=== PATIENT | male | born 1970 | race Caucasian/White ===

== ENCOUNTER → 2017-11-03 | Outpatient (CLI) | payer OTHER ==
--- NOTE | 2017-11-04 17:23 | MR ---
EXAMINATION TYPE: MR cervical spine wo/w con DATE OF EXAM: 11/03/2017 COMPARISON: NONE HISTORY: 47-year-old male, neck pain, discitis, Cervicalgia/Left arm pain Technique: Multiplanar, multisequence images of the cervical spine were obtained before and after adm inistration of 10 mL intravenous Gadavist gadolinium contrast. FINDINGS: No craniocervical junction abnormality, predental space widening, or prevertebral soft tissue swellin g. Moderate to advanced disc/endplate degenerative change particularly from C5 through C7 levels with di sc desiccation, disc space narrowing, endplate irregularity, associated Modic fatty type II endplate change, and disc osteophyte complex formation. Multilevel facet and uncovertebral joint degenerative changes present. Straightening of the normal cervical lordosis but with preserved alignment. There is a component of mild congenital spinal canal narrowing with AP canal dimension of 9 mm. At C2-C3, there is mild facet degenerative change without significant canal or foraminal stenosis. At C3-C4, broad-based disc osteophyte complex eccentric toward the right with uncovertebral joint deg enerative change as well as facet arthropathy. Changes result in mild right neuroforaminal stenosis w ith mild overall spinal canal stenosis. There is some abutment of the ventral cord without cord tucker ening. At C4-C5, there is a left paracentral disc protrusion or spur disc complex which contributes to a ove rall mild spinal canal stenosis with focal compression and indentation of the ventral cord. Mild face t and uncovertebral joint arthropathy without significant neural foraminal stenosis. At C5-C6, broad-based disc osteophyte complex with uncovertebral joint and facet degenerative change. No significant neural foraminal stenosis. There is overall copw-cw-[id number] spinal canal stenosis wi th AP canal dimension of 8 mm. The degree of degenerative disc disease is most severe at this level w ith extensive endplate irregularity and some vacuum phenomenon. There is volume loss of the cord at t his level with some right greater than left paramedian increased T2 signal in a snake eyes appearance . Uncovertebral joint and facet degenerative change without significant neural foraminal stenosis. At C6/C7, broad-based disc osteophyte complex eccentric toward the right with uncovertebral joint and facet degenerative change. Changes contribute to a moderate right neuroforaminal stenosis with moder ate spinal canal stenosis with AP canal dimension of 7 mm. There is abutment of the ventral cord towa rds the right but no significant cord flattening. At C7-T1, facet degenerative change without significant canal or foraminal stenosis. No abnormal enhancement within the spinal canal. No prevertebral or paravertebral soft tissue abnormality seen. IMPRESSION: 1. Component of mild congenital spinal canal stenosis with superimposed moderate to advanced disc/end plate degenerative changes specially from C5 through C7 levels. 2. The most advanced degenerative disc disease is at C5-C6 where there is endplate irregularity and d isc vacuum. There are 2 foci of abnormal cord signal at this level, right greater than left, suspecte d chronic compressive myelomalacia given volume loss of the cord and snake eyes appearance to the cor d signal. Clinical correlation recommended. Now, there is residual mild to moderate spinal canal sten osis here within an AP canal dimension of 8 mm. 3. Mild overall spinal canal stenosis at C3-C4 and C4-C5 and moderate at C6-7. No marilynn cord compress ion at this time. 4. Additional scattered facet and uncovertebral joint degenerative change with a moderate right neuro foraminal stenosis at C6-C7.
== END | disposition home or self-care (01) ==
LOC: RADMRIMAIN 06:35
PROVIDERS: ATTEND Chiropractor
DX: M99.71 Connective tissue and disc stenosis of intervertebral foramina of cervical region (principal); M48.02 Spinal stenosis, cervical region; M50.322 Other cervical disc degeneration at C5-C6 level; M47.812 Spondylosis without myelopathy or radiculopathy, cervical region
CPT/HCPCS: 72156; A9581

== ENCOUNTER → 2018-05-01 | Outpatient (CLI) | payer OTHER ==
--- NOTE | 2018-05-01 22:31 | MR ---
EXAMINATION TYPE: MR shoulder LT wo con DATE OF EXAM: 05/01/2018 COMPARISON: None HISTORY: Left shoulder pain TECHNIQUE: Multiplanar, multisequence imaging of the left shoulder is performed without contrast. FINDINGS: Rotator Cuff: Very minimal fluid is under the tip of the acromion in the subdeltoid bursa. Fluid brantley sversing the rotator cuff is not identified. A small perforation could be considered. There is moder ate fluid surrounding the subscapularis tendon. Fluid transversing the subscapularis tendon is not id entified. Consider moderate tendinosis of the subscapularis tendon. Acromioclavicular Joint: No significant hypertrophy is evident. There is slight downward sloping of t he acromion. Glenohumeral Joint: There is elevation of the humeral head in relation to the glenoid. The acromiohum eral space however is preserved. Labrum: The labrum appears grossly intact given limitation of non-arthrogram study. Biceps Tendon: There is significant fluid surrounding the long head of the biceps tendon. Bone marrow signal: No focal abnormal marrow signal is appreciated. Other: Moderate to large joint effusion is present. IMPRESSION: 1. Moderately large joint effusion present. 2. Moderate tendinosis of the subscapularis tendon 3. Moderate tendinosis of the long head of the biceps tendon. 4. Mild tendinosis of the supraspinatus tendon could be considered. Perforation may be less likely bu t is not excluded.
== END | disposition home or self-care (01) ==
LOC: RADMRIMAIN 07:43
PROVIDERS: ATTEND Orthopaedic Surgery
DX: M25.412 Effusion, left shoulder (principal); M67.814 Other specified disorders of tendon, left shoulder

== ENCOUNTER → 2018-07-13 | Outpatient (CLI) | payer OTHER ==
--- NOTE | 2018-07-13 16:34 | CONS ---
CONSULTATION REASON FOR CONSULTATION: Sleep apnea. This is a 48-year-old male patient who has been having sleep interruption, as the patient is waking up gasping for air. He is snoring very loudly and he is waking up on multiple occasions choking and gasping. He feels tired all the time. He is an aircraft structural fitter. He does a lot of traveling. He works in [employer] and he drives back and forth to [place]. Upon driving back from work, he is very tired and sleepy, and at times he feels that he can easily fall asleep. His [place] score is 17. He has chronic nasal congestion, for which he has tried Sudafed with good success. This is non-allergic in nature, knowing that he has not responded to Flonase or Claritin. His snoring is very loud. No nocturia. No grinding of the teeth. He has chronic arthritic pain in his neck and his shoulders, and he has been unable to get himself comfortable in bed. He has gotten a special pillow that he sleeps on, and he tries to sleep on his side. He goes to bed around 11 p.m., wakes up at 6 a.m. in the morning. He wakes up sometimes uncomfortable due to his neck and shoulder pain. He has undergone previous cervical disc surgery with fusion at the level of C5 and C6. No restlessness in the lower extremities. He has been feeling tired and sleepy throughout the day. He did gain weight over the years; he used to weigh around 205 pounds. He was as high as 258, and currently he is down to 244. He does not drink alcohol. He quit drinking alcohol quite some time ago. No history of smoking. No history of substance abuse. No dreams. No seizure activity. No sleep paralysis. No hallucinations or cataplexy. PAST MEDICAL HISTORY: 1. Degenerative arthritis. 2. Cervical disc disease with previous effusion. 3. Chronic rhinitis. 4. Heartburn. PAST SURGICAL HISTORY: Includes: 1. Cervical spine fusion at C5, C6. 2. Proximal right wrist carpectomy. 3. Bilateral knee arthroscopy. ALLERGIES: NOT KNOWN. OUTPATIENT MEDICATIONS: Include: 1. Sudafed over the counter. 2. Omeprazole. SOCIAL HISTORY: The patient is a nonsmoker. No history of alcoholism. No history of any IV drugs. FAMILY HISTORY: Negative for obstructive sleep apnea. No significant family history related to sleep breathing disorder. REVIEW OF SYSTEMS: Twelve-point review of systems was done. Positive findings were all mentioned above in the history of present illness. This patient has no issues with insomnia. His sleep is fragmented related to arthritis and possibly sleep apnea. No choking or gasping for air. No grinding of the teeth. He wakes up with a dry mouth. He has excessive nasal congestion and occasional heartburn. No shortness of breath, chest pain or headache during the day. No anxiety. No depression. No claustrophobia. No sleep paralysis. No hallucinations. No cataplexy. No history of any motor vehicle accident because of feeling drowsy or sleepy. No issues with memory or concentration. He has had issues with weight gain and he is trying to lose weight. Because of his chronic arthritic pain, especially of the joints and the neck, he constantly flips on all sides to relieve his stiffness and get more comfortable regarding his chronic pain. He has been snoring for more than 10 years. His snoring has gotten worse since he gained weight. PHYSICAL EXAMINATION: BP is 124/81, pulse 76, respirations 16, temperature 98.4, saturation 97% on room air. Weight is 244. Height is 6 feet 0 inches. [place] score is 17. Neck size is 17-1/2. BMI is 33.0. Temperature 98.4. GENERAL APPEARANCE: Calm, comfortable. Head is atraumatic, normocephalic. NECK: Supple. There is no JVD. No goiter or neck mass. Mallampati class 1. LUNGS: Clear to auscultation. Heart sounds are regular rate and rhythm. Normal S1, S2. No S3, S4. No murmurs. ABDOMEN: Soft, nontender. No organomegaly. EXTREMITIES: No edema. No cyanosis or clubbing. NEUROLOGIC: Alert and oriented x3. No focal neurological deficits. PSYCHIATRIC: Negative for anxiety or depression. IMPRESSION: 1. Hypersomnia, under investigation. Patient's [place] score is 17. Consider underlying obstructive sleep apnea. Consider underlying sleep fragmentation due to comorbidities, especially chronic pain and arthritis. 2. Mild obesity with a body mass index of 33.0. The patient is trying to lose weight. He is approximately 40 pounds above his baseline. 3. Chronic rhinitis, non-allergic in nature. Taking Sudafed. 4. Chronic neck pain with cervical disc disease and previous C5, C6 fusion. 5. Chronic shoulder arthritis. PLAN: 1. Will proceed with a screening polysomnogram. This will be important to establish diagnosis and disease severity. 2. The patient may benefit from an ENT evaluation at a later stage, knowing that for now he is using Sudafed for his chronic nasal congestion. 3. Will explore treatment options based on his disease severity. I guess it would be difficult for this patient to tolerate a CPAP, as the patient has difficulties in getting himself comfortable. He constantly flips on all sides to relieve stiffness and body aches. A final decision on CPAP therapy will be done based on his disease severity and his ability to tolerate this type of treatment in the future. MMBETTYL / IJN: [id number] /
== END ==
LOC: SLEEP 13:23
PROVIDERS: ATTEND Internal Medicine Critical Care Medicine
DX: G47.30 Sleep apnea, unspecified (principal); E66.9 Obesity, unspecified; J31.0 Chronic rhinitis; G89.29 Other chronic pain; M54.2 Cervicalgia; M19.019 Primary osteoarthritis, unspecified shoulder; M50.30 Other cervical disc degeneration, unspecified cervical region; Z98.1 Arthrodesis status; Z99.89 Dependence on other enabling machines and devices; Z68.33 Body mass index [BMI] 33.0-33.9, adult; Z79.899 Other long term (current) drug therapy
CPT/HCPCS: 99211

== ENCOUNTER 2019-01-20 15:12 | Emergency (ER) | payer OTHER ==
[2019-01-20 15:35] VITALS: BP 144/88; RESP 18; TEMP 98.1
[2019-01-20] MEDS ORDERED: MORPHINE SULFATE 4 MG/ML SYRINGE IM STA ×2 (15:49→16:34)
--- NOTE | 2019-01-20 16:16 | ED ---
General Adult HPI - General Chief complaint: Upper Respiratory Infection Stated complaint: post surgical pain Time Seen by Provider: 01/20/19 15:37 Source: patient, RN notes reviewed, old records reviewed Mode of arrival: ambulatory Limitations: no limitations - History of Present Illness Initial comments: 48-year-old male patient in CDU chief complaint of left shoulder pain. Patient reports that earlier today he had an outpatient rotator cuff repair and bone spur removal of the left shoulder complete by Dr. Fierro patient denies any recent falls or trauma. Patient denies any other location of pain. Denies other complaints. Systemic: Pt denies fatigue, fever/chills, rash. Pt denies weakness, night sweats, weight loss. Neuro: Pt denies headache, visual disturbances, syncope or pre-syncope. HEENT: Pt denies ocular discharge or irritation, otalgia, rhinorrhea, pharyngitis or notable lymphadenopathy. Cardiopulmonary: Pt denies chest pain, SOB, heart palpitations, dyspnea on exertion. Abdominal/GI: Pt denies abdominal pain, n/v/d. : Pt denies dysuria, burning w/ urination, frequency/urgency. Denies new onset urinary or bowel incontinence. MSK: Pt denies myalgia, loss of strength or function in extremities. Neuro: Pt denies new onset weakness, paresthesias. - Related Data Allergies Allergy/AdvReac Type Severity Reaction Status Date / Time No Known Allergies Allergy Verified 01/20/19 15:32 Review of Systems ROS Statement: Those systems with pertinent positive or pertinent negative responses have been documented in the HPI. ROS Other: All systems not noted in ROS Statement are negative. Past Medical History Past Medical History: GERD/Reflux History of Any Multi-Drug Resistant Organisms: None Reported Additional Past Surgical History / Comment(s): L rotator cuff, B knee arthroplasty, B feet, cervical fusion, R wrist Past Psychological History: No Psychological Hx Reported Smoking Status: Former smoker Past Alcohol Use History: Occasional Past Drug Use History: None Reported General Exam - General Exam Comments Initial Comments: Constitutional: NAD, AOX3, Pt has pleasant affect. HEENT: NC/AT, trachea midline, neck supple, no lymphadenopathy. Posterior pharynx non erythematous, without exudates. External ears appear normal, without discharge. Mucous membranes moist. Eyes PERRLA, EOM intact. There is no scleral icterus. No pallor noted. Cardiopulmonary: RRR, no murmurs, rubs or gallops, no JVD noted. Lungs CTAB in anterior and posterior valencia. No peripheral edema. Abdominal exam: Abdomen soft and non-distended. Abdomen non-tender to palpation in all 4 quadrants. Bowel sounds active in LLQ. No hepatosplenomegaly. No ecchymosis Neuro: CN II-XII grossly intact. No nuchal rigidity. No raccon eyes, no kaplan sign, no hemotympanum. No cervical spinal tenderness. MSK: Left radial pulse +2, patient able to wiggle fingers, sensation intact, forearm compartment soft. No posterior calf tenderness bilaterally, homans sign negative bilaterally. Posterior tibialis and radial pulse +2 bilaterally. Sensation intact in upper and lower extremities. Full active ROM in upper and lower extremities, 5/5 stregnth. Limitations: no limitations Course Vital Signs 01/20/19 15:32 Temperature 98.1 F Pulse Rate 107 H Respiratory 18 Rate Blood Pressure 144/88 O2 Sat by Pulse 96 Oximetry Medical Decision Making - Medical Decision Making 48-year-old male patient presents in ED with chief complaint of left shoulder pain. Patient reports that earlier today he had an outpatient rotator cuff repair and bone spur removal of the left shoulder complete by Dr. Fierro patient denies any recent falls or trauma. Patient denies any other location of pain. Denies other complaints. Pt VSS, afebrile. Physical exam displayed: Left radial pulse +2, patient able to wiggle fingers, sensation intact, forearm compartment soft. Dr. Fierro was contacted on his cell phone. He recommended nature patient was neurovascular intact distally, forearm compartments are soft and control his pain. Did not recommend any further intervention. Patient was discharged with primary care follow-up and orthopedic follow-up. Case discussed with Dr. Melgar. Disposition Clinical Impression: Post-op pain Disposition: HOME SELF-CARE Condition: Stable Instructions (If sedation given, give patient instructions): Musculoskeletal Pain (ED) Additional Instructions: Patient to adhere to previously discussed treatment plan and will take medication(s) as directed. Patient to follow up with PCP in 1-2 days. Patient to return to ED if symptoms do not improve. Follow-up with primary care provider and Dr. Fierro, take pain medications as directed, return to ER if condition worsens. Is patient prescribed a controlled substance at d/c from ED?: No Referrals: Marzena Washington MD [Primary Care Provider] - 1-2 days
[2019-01-20 17:14] VITALS: PULSE 87
== END 2019-01-20 17:21 | disposition home or self-care (01) ==
LOC: EC 15:12
DX: G89.18 Other acute postprocedural pain (principal); M25.512 Pain in left shoulder; Z98.890 Other specified postprocedural states; Z87.891 Personal history of nicotine dependence; Z96.653 Presence of artificial knee joint, bilateral
CPT/HCPCS: 99284; 96372 ×2; J2270

== ENCOUNTER → 2020-07-16 | Outpatient (CLI) | payer OTHER ==
--- NOTE | 2020-07-16 23:14 | MR ---
EXAMINATION TYPE: MR shoulder RT wo con DATE OF EXAM: 07/16/2020 COMPARISON: HISTORY: Right shoulder pain and limited range of motion for 3-4 years, worse in past 3 months. Multiplanar multiecho imaging of the right shoulder was performed without contrast. There is narrowing of the shoulder joint space. There is mild to moderate shoulder joint effusion. Th e subscapularis tendon is intact. The glenoid merissa appear intact. There is intact biceps tendon. The re is fluid around the biceps tendon. The supraspinatus tendon does not show evidence of a full-thickness tear. There is small areas of inc reased signal in the supraspinatus tendon. The AC joint is intact. There is minimal subacromial impin gement. There is minor spurring at the AC joint. The humeral head is intact. There are small degenera tive cysts in the greater tuberosity of the humerus. IMPRESSION: Small intrasubstance tears of the supraspinatus tendon. No full-thickness tear. Shoulder joint effusion suggestive of some nonspecific synovitis. Mild osteoarthritis at the shoulder joint. Minimal subacromial impingement.
== END ==
LOC: RADMRIMAIN 20:43
PROVIDERS: ATTEND Orthopaedic Surgery
DX: M19.011 Primary osteoarthritis, right shoulder (principal); M75.111 Incomplete rotator cuff tear or rupture of right shoulder, not specified as traumatic

== ENCOUNTER 2021-09-01 18:37 | Observation (INO) | payer BC, OTHER ==
[2021-09-01] MEDS ORDERED: ASPIRIN 81 MG PO STA (18:57)
[2021-09-01] MEDS ORDERED: NITROGLYCERIN OINT 1 INCH/GM PACKET TOPICAL STA (18:57)
[2021-09-01] MEDS ORDERED: LORazepam 2 MG/ML INJ IV STA (19:18)
--- NOTE | 2021-09-01 19:31 | ED ---
General Adult HPI - General Source: patient, RN notes reviewed, old records reviewed Mode of arrival: wheelchair Limitations: no limitations <Chung Powell - Last Filed: 09/09/21 19:06> <Lonnie Allen - Last Filed: 09/10/21 11:46> - General Chief complaint: Chest Pain Stated complaint: Chest pain Time Seen by Provider: 09/01/21 18:45 - History of Present Illness Initial comments: This is a 51-year-old male who presents emergency Department with a past medical history significant for low blood pressure and high cholesterol. Patient states he started to have some chest pain at about 11 12:00 this morning and it so severe it buckled him over the last few minutes and subsides. Patient states it 4 times an hour. Patient states he got worse and worse as the day went on and he became diaphoretic with the pain later in the day. Patient also complains of some nausea. Patient denies any vomiting. Patient states she's had similar episodes over the last 3 years but it's only a few times a year and none of them have been as severe as this episode. Patient denies any gallbladder issues but states a lot of times in the past this has come on after eating. Patient denies any recent fever chills. (Chung Powell) - Related Data Home Medications Medication Instructions Recorded Confirmed Atorvastatin Calcium [Lipitor] 10 mg PO DAILY 09/01/21 09/01/21 Esomeprazole Magnesium [NexIUM 20 mg PO DAILY 09/01/21 09/01/21 24Hr] Glucosamine/Chondr Osuna A Sod [Osteo 2 tab PO DAILY 09/01/21 09/01/21 Bi-Flex Caplet] Multivit-Min/FA/Lycopen/Lutein 1 tab PO DAILY 09/01/21 09/01/21 [Centrum Silver Men Tablet] Previous Rx's Medication Instructions Recorded Nitroglycerin Sl Tabs [Nitrostat] 0.4 mg SUBLINGUAL Q5M PRN #20 tab 09/02/21 Allergies Allergy/AdvReac Type Severity Reaction Status Date / Time No Known Allergies Allergy Verified 09/01/21 20:51 Review of Systems ROS Other: All systems not noted in ROS Statement are negative. <Chung Powell - Last Filed: 09/09/21 19:06> ROS Other: All systems not noted in ROS Statement are negative. <Lonnie Allen - Last Filed: 09/10/21 11:46> ROS Statement: Those systems with pertinent positive or pertinent negative responses have been documented in the HPI. Past Medical History Past Medical History: GERD/Reflux History of Any Multi-Drug Resistant Organisms: None Reported Additional Past Surgical History / Comment(s): L rotator cuff, B knee arthroplasty, B feet, cervical fusion, R wrist Past Psychological History: No Psychological Hx Reported Smoking Status: Former smoker Past Alcohol Use History: Occasional Past Drug Use History: None Reported <Chung Powell - Last Filed: 09/09/21 19:06> General Exam Limitations: no limitations <Chung Powell - Last Filed: 09/09/21 19:06> - General Exam Comments Initial Comments: GENERAL: Patient is well-developed and well-nourished. Patient is nontoxic and well- hydrated and is in no acute distress. ENT: Neck is soft and supple. No significant lymphadenopathy is noted. Oropharynx is clear. Moist mucous membranes. Neck has full range of motion without eliciting any pain. EYES: The sclera were anicteric and conjunctiva were pink and moist. Extraocular movements were intact and pupils were equal round and reactive to light. Eyelids were unremarkable. PULMONARY: Unlabored respirations. Good breath sounds bilaterally. No audible rales rhonchi or wheezing was noted. CARDIOVASCULAR: There is a regular rate and rhythm without any murmurs gallops or rubs. ABDOMEN: Soft and nontender with normal bowel sounds. SKIN: Skin is clear with no lesions or rashes and otherwise unremarkable. NEUROLOGIC: Patient is alert and oriented x3. Cranial nerves II through XII are grossly intact. Motor and sensory are also intact. Normal speech, volume and content. Symmetrical smile. MUSCULOSKELETAL: Normal extremities with adequate strength and full range of motion. LYMPHATICS: No significant lymphadenopathy is noted PSYCHIATRIC: Normal psychiatric evaluation. (Chung Powell) Course Vital Signs 09/01/21 09/01/21 09/01/21 18:39 18:51 19:00 Temperature 98.1 F 98.9 F Pulse Rate 99 97 96 Respiratory 19 18 10 L Rate Blood Pressure 124/81 125/75 125/75 O2 Sat by Pulse 97 94 L 94 L Oximetry 09/01/21 09/01/21 09/01/21 19:30 20:10 20:40 Temperature Pulse Rate 88 89 90 Respiratory 22 20 16 Rate Blood Pressure 104/74 88/74 96/63 O2 Sat by Pulse 91 L 91 L 94 L Oximetry 09/01/21 22:00 Temperature Pulse Rate 85 Respiratory 16 Rate Blood Pressure 97/61 O2 Sat by Pulse 93 L Oximetry Medical Decision Making - Lab Data Result diagrams: 09/01/21 19:22 09/01/21 19:23 <Chung Powell - Last Filed: 09/09/21 19:06> - Lab Data Result diagrams: 09/01/21 19:22 09/01/21 19:23 <Lonnie Allen - Last Filed: 09/10/21 11:46> - Medical Decision Making EKG shows sinus tachycardia at 100 bpm [place] interval 249 T 170 QT interval 327 QTC is 384. Patient's EKG shows no ST segment elevation or depression. Ultrasound gallbladder shows no acute abnormality. D-dimer was elevated so I ordered CT of the chest. Dr. Hull will be taking over the care of the patient 9 PM (Chung Powell) - Lab Data Lab Results 09/01/21 09/01/21 09/01/21 Range/Units 19:22 19:22 19:23 WBC 10.1 (3.8-10.6) k/uL RBC 5.11 (4.30-5.90) m/uL Hgb 15.3 (13.0-17.5) gm/dL Hct 44.4 (39.0-53.0) % MCV 86.8 (80.0-100.0) fL MCH 29.8 (25.0-35.0) pg MCHC 34.4 (31.0-37.0) g/dL RDW 13.0 (11.5-15.5) % Plt Count 289 (150-450) k/uL MPV 7.6 Neutrophils % 71 % Lymphocytes % 19 % Monocytes % 7 % Eosinophils % 1 % Basophils % 0 % Neutrophils # 7.2 (1.3-7.7) k/uL Lymphocytes # 1.9 (1.0-4.8) k/uL Monocytes # 0.7 (0-1.0) k/uL Eosinophils # 0.1 (0-0.7) k/uL Basophils # 0.0 (0-0.2) k/uL PT 10.2 (9.0-12.0) sec INR 0.9 (<1.2) APTT 22.8 (22.0-30.0) sec D-Dimer 0.83 H (<0.60) mg/L FEU Sodium (137-145) mmol/L Potassium (3.5-5.1) mmol/L Chloride (98-107) mmol/L Carbon Dioxide (22-30) mmol/L Anion Gap mmol/L BUN (9-20) mg/dL Creatinine (0.66-1.25) mg/dL Est GFR (CKD-EPI)AfAm (>60 ml/min/1.73 sqM) Est GFR (CKD-EPI)NonAf (>60 ml/min/1.73 sqM) Glucose (74-99) mg/dL Estimated Ave Glu mg/dL 118 Hemoglobin A1c 5.8 (0.0-6.0) % Calcium (8.4-10.2) mg/dL Magnesium (1.6-2.3) mg/dL Total Bilirubin (0.2-1.3) mg/dL AST (17-59) U/L ALT (4-49) U/L Alkaline Phosphatase (38-126) U/L Troponin I (0.000-0.034) ng/mL Total Protein (6.3-8.2) g/dL Albumin (3.5-5.0) g/dL 09/01/21 09/01/21 Range/Units 19:23 19:23 WBC (3.8-10.6) k/uL RBC (4.30-5.90) m/uL Hgb (13.0-17.5) gm/dL Hct (39.0-53.0) % MCV (80.0-100.0) fL MCH (25.0-35.0) pg MCHC (31.0-37.0) g/dL RDW (11.5-15.5) % Plt Count (150-450) k/uL MPV Neutrophils % % Lymphocytes % % Monocytes % % Eosinophils % % Basophils % % Neutrophils # (1.3-7.7) k/uL Lymphocytes # (1.0-4.8) k/uL Monocytes # (0-1.0) k/uL Eosinophils # (0-0.7) k/uL Basophils # (0-0.2) k/uL PT (9.0-12.0) sec INR (<1.2) APTT (22.0-30.0) sec D-Dimer (<0.60) mg/L FEU Sodium 136 L (137-145) mmol/L Potassium 4.1 (3.5-5.1) mmol/L Chloride 102 (98-107) mmol/L Carbon Dioxide 25 (22-30) mmol/L Anion Gap 9 mmol/L BUN 15 (9-20) mg/dL Creatinine 0.97 (0.66-1.25) mg/dL Est GFR (CKD-EPI)AfAm >90 (>60 ml/min/1.73 sqM) Est GFR (CKD-EPI)NonAf >90 (>60 ml/min/1.73 sqM) Glucose 103 H (74-99) mg/dL Estimated Ave Glu mg/dL Hemoglobin A1c (0.0-6.0) % Calcium 9.2 (8.4-10.2) mg/dL Magnesium 1.9 (1.6-2.3) mg/dL Total Bilirubin 0.9 (0.2-1.3) mg/dL AST 45 (17-59) U/L ALT 60 H (4-49) U/L Alkaline Phosphatase 91 (38-126) U/L Troponin I <0.012 (0.000-0.034) ng/mL Total Protein 8.1 (6.3-8.2) g/dL Albumin 4.4 (3.5-5.0) g/dL Disposition <Chung Powell - Last Filed: 09/09/21 19:06> Is patient prescribed a controlled substance at d/c from ED?: No <Lonnie Allen - Last Filed: 09/10/21 11:46> Clinical Impression: Chest pain Disposition: HOME SELF-CARE Condition: Good
--- NOTE | 2021-09-01 19:55 | US ---
EXAMINATION TYPE: US gallbladder DATE OF EXAM: 09/01/2021 COMPARISON: NONE CLINICAL HISTORY: Chest pain. No prior abdomen surgeries. EXAM MEASUREMENTS: Liver Length: 16.7 cm Gallbladder Wall: 0.2 cm CBD: 0.6 cm Right Kidney: 10.5 x 5.6 x 5.6 cm Pancreas: Tail obscured by overlying bowel gas Liver: wnl Gallbladder: No stones or sludge seen seen Evidence for sonographic Kaufman's sign: neg CBD: wnl Right Kidney: No hydronephrosis or masses seen IMPRESSION: 1. No gallstones, wall thickening, distention or pericholecystic fluid. 2. no biliary ductal dilatation. 3. normal right kidney. 4. Visualized portions of pancreas and liver within normal limits.
--- NOTE | 2021-09-01 20:03 | XR ---
EXAMINATION TYPE: XR chest 2V DATE OF EXAM: 09/01/2021 COMPARISON: NONE HISTORY: Chest pain TECHNIQUE: Frontal and lateral views of the chest are obtained. FINDINGS: There is no focal air space opacity, pleural effusion, or pneumothorax seen. The cardiac silhouette size is within normal limits. The osseous structures are intact. IMPRESSION: No acute cardiopulmonary process.
[2021-09-01 20:24] LABS: INR 0.9 (<1.2); Partial Thromboplastin Time 22.8 sec (22.0-30.0); Prothrombin Time 10.2 sec (9.0-12.0)
[2021-09-01 20:36] LABS: Basophils % (A) 0 %; Eosinophils # (A) 0.1 k/uL (0-0.7); Eosinophils % (A) 1 %; HCT 44.4 % (39.0-53.0); HGB 15.3 gm/dL (13.0-17.5); Lymphocytes # (A) 1.9 k/uL (1.0-4.8); Lymphocytes % (A) 19 %; MCH 29.8 pg (25.0-35.0); MCHC 34.4 g/dL (31.0-37.0); MCV 86.8 fL (80.0-100.0); Mean Platelet Volume 7.6; Monocytes # (A) 0.7 k/uL (0-1.0); Monocytes % (A) 7 %; Neutrophils # (A) 7.2 k/uL (1.3-7.7); Neutrophils % (A) 71 %; Platelet Count 289 k/uL (150-450); RBC 5.11 m/uL (4.30-5.90); WBC 10.1 k/uL (3.8-10.6)
[2021-09-01 20:58] LABS: ALT 60 U/L (4-49); AST 45 U/L (17-59); African American GFR (CKD) >90 (>60 ml/min/1.73 sqM); Albumin 4.4 g/dL (3.5-5.0); Alkaline Phosphatase 91 U/L (38-126); Anion Gap 9 mmol/L; Blood Urea Nitrogen 15 mg/dL (9-20); Calcium 9.2 mg/dL (8.4-10.2); Carbon Dioxide 25 mmol/L (22-30); Chloride 102 mmol/L (98-107); Glucose 103 mg/dL (74-99); Magnesium 1.9 mg/dL (1.6-2.3); Non-African American GFR(CKD) >90 (>60 ml/min/1.73 sqM); Potassium 4.1 mmol/L (3.5-5.1); Sodium 136 mmol/L (137-145); Total Bilirubin 0.9 mg/dL (0.2-1.3); Total Protein 8.1 g/dL (6.3-8.2)
--- NOTE | 2021-09-01 21:29 | CT ---
EXAMINATION TYPE: CT chest angio for PE DATE OF EXAM: 09/01/2021 COMPARISON: Chest x-ray earlier today HISTORY: elevated d-dimer. Chest pain. CT DLP: 635 mGycm. Automated Exposure Control for Dose Reduction was Utilized. CONTRAST: CTA scan of the thorax is performed with IV Contrast, patient injected with 100 mL of Isovue 370, pul monary embolism protocol. MIP Images are created on CT scanner and reviewed. FINDINGS: LUNGS: Dependent atelectasis bilaterally. No suspicious focal consolidation. No pleural effusion or p neumothorax seen bilaterally. . No concerning masses. MEDIASTINUM: Suboptimal bolus with most dense contrast in the SVC.. There is even greater dense contr ast in the aorta without aneurysm or dissection versus pulmonary arteries. No central pulmonary embol ism. No obvious peripheral pulmonary embolism with some limitation in evaluation of the segmental and subsegmental branches. There are few scattered prominent but subcentimeter lymph nodes throughout th e thorax.. No cardiomegaly or pericardial effusion is seen. OTHER: Prominent but subcentimeter bilateral axillary lymph nodes are present. IMPRESSION: Suboptimal study without significant central pulmonary embolism. No suspicious acute pulm onary process.
[2021-09-01] MEDS ORDERED: NITROGLYCERIN SL TABS 0.4 MG TAB SUBLINGUAL PRN (23:13)
[2021-09-02 08:20] VITALS: BP 103/69; PULSE 92; RESP 16; TEMP 98.5
[2021-09-02] MEDS ORDERED: ASPIRIN 325 MG TAB PO SCH (09:00)
[2021-09-02] MEDS ORDERED: PANTOPRAZOLE 40 MG TABLET PO SCH (09:00)
[2021-09-02] MEDS ORDERED: ATORVASTATIN 10 MG TAB PO SCH (09:00)
[2021-09-02 09:38] LABS: Chol/HDL Ratio 4.57 Ratio; LDL Cholesterol,Calculated 80.5 mg/dL (0.0-131.0)
--- NOTE | 2021-09-02 10:29 | P.CRDCN ---
History of Present Illness Consult date: 09/02/21 History of present illness: HISTORY OF PRESENT ILLNESS: This is a 51-year-old male with a past medical history significant for GERD, hyperlipidemia, and cervical fusion. Patient last saw Dr. Dunn in 2014. We have been asked to see the patient in consultation for chest pain. Patient examined at the bedside. Patient states yesterday he began having chest discomfort around noon. He states he initially thought it was indigestion but it continued to get worse as the day went on. The patient states he received medication in the emergency room which relieved his pain. He also reports chronic back pain. He states his back has also been bothering him. He reports the chest pain was worse with movement of his back yesterday. * EKG reveals sinus tachycardia with incomplete right bundle branch block and left axis deviation. No signs of acute ischemia * Chest xray negative for acute process * Laboratory data: WBC 10.1. Hemoglobin 15.3. Platelet count 289. D-dimer 0.83. Sodium 136. Potassium 4.1. BUN 15. Creatinine 0.97. Magnesium 1.9. Troponin negative 3. * Current home cardiac medications include Lipitor 10 mg daily * Chest CTA: Negative for PE * Patient underwent echocardiogram in 2012 revealing normal ejection fraction * Patient also underwent stress testing in August 2012 which was negative for ischemia REVIEW OF SYSTEMS: At the time of my exam: CONSTITUTIONAL: Denies fever or chills. HEENT: Denies blurred vision, vision changes, or eye pain. Denies hemoptysis CARDIOVASCULAR: Denies chest pain. Denies orthopnea. Denies PND. Denies palpitations RESPIRATORY: Denies shortness of breath. GASTROINTESTINAL: Denies abdominal pain. Denies nausea or vomiting. HEMATOLOGIC: Denies bleeding disorders. GENITOURINARY: Denies any blood in urine. SKIN: Denies pruitis. Denies rash. PHYSICAL EXAM: VITAL SIGNS: Reviewed. GENERAL: Well-developed in no acute distress. HEENT: Head is normocephalic. Pupils are equal, round. Sclerae anicteric. Mucous membranes of the mouth are moist. Neck supple. No JVD or thyromegaly LUNGS: Respirations even and unlabored. Lungs essentially clear to auscultation bilaterally. HEART: Regular rate and rhythm. S1 and S2 heard. ABDOMEN: Soft. Nondistended. Nontender. EXTREMITIES: Normal range of motion. No clubbing or cyanosis. Peripheral pulses intact. No lower extremity edema NEUROLOGIC: Awake and alert. Oriented x 3. ASSESSMENT: Chest pain, atypical, troponin negative x 3 Hyperlipidemia GERD History of cervical fusion PLAN: An acute coronary event has been ruled out Check lipid panel and hemoglobin A1C No need to obtain echo per Dr Dunn Patient may be discharged home today per Dr. Dunn and follow up on an outpatient basis Nurse practitioner note has been reviewed by physician. Signing provider agrees with the documented findings, assessment, and plan of care. Past Medical History Past Medical History: GERD/Reflux History of Any Multi-Drug Resistant Organisms: None Reported Additional Past Surgical History / Comment(s): L rotator cuff, B knee art hroplasty, B feet, cervical fusion, R wrist Past Psychological History: No Psychological Hx Reported Smoking Status: Former smoker Past Alcohol Use History: Occasional Past Drug Use History: None Reported Medications and Allergies Home Medications Medication Instructions Recorded Confirmed Type Atorvastatin Calcium [Lipitor] 10 mg PO DAILY 09/01/21 09/01/21 History Esomeprazole Magnesium [NexIUM 20 mg PO DAILY 09/01/21 09/01/21 History 24Hr] Glucosamine/Chondr Osuna A Sod [Osteo 2 tab PO DAILY 09/01/21 09/01/21 History Bi-Flex Caplet] Multivit-Min/FA/Lycopen/Lutein 1 tab PO DAILY 09/01/21 09/01/21 History [Centrum Silver Men Tablet] Allergies Allergy/AdvReac Type Severity Reaction Status Date / Time No Known Allergies Allergy Verified 09/01/21 20:51 Physical Exam Vitals: Vital Signs Temp Pulse Pulse Resp BP BP Pulse Ox 09/02/21 07:00 98.5 F 92 16 103/69 97 09/02/21 00:47 98.1 F 77 18 115/71 95 09/01/21 22:00 85 16 97/61 93 L 09/01/21 20:40 90 16 96/63 94 L 09/01/21 20:10 89 20 88/74 91 L 09/01/21 19:30 88 22 104/74 91 L 09/01/21 19:00 96 10 L 125/75 94 L 09/01/21 18:51 98.9 F 97 18 125/75 94 L 09/01/21 18:39 98.1 F 99 19 124/81 97 Intake and Output 09/01/21 09/02/21 09/02/21 22:59 06:59 14:59 Other: # Voids 1 Weight 113.398 kg 113.398 kg Results 09/01/21 19:22 09/01/21 19:23 Cardiac Enzymes 09/01/21 09/01/21 09/02/21 Range/Units 19:23 19:23 00:29 AST 45 (17-59) U/L Troponin I <0.012 <0.012 (0.000-0.034) ng/mL 09/02/21 Range/Units 03:22 AST (17-59) U/L Troponin I <0.012 (0.000-0.034) ng/mL Coagulation 09/01/21 Range/Units 19:23 PT 10.2 (9.0-12.0) sec APTT 22.8 (22.0-30.0) sec CBC 09/01/21 Range/Units 19: WBC 10.1 (3.8-10.6) k/uL RBC 5.11 (4.30-5.90) m/uL Hgb 15.3 (13.0-17.5) gm/dL Hct 44.4 (39.0-53.0) % Plt Count 289 (150-450) k/uL Comprehensive Metabolic Panel 09/01/21 Range/Units 19:23 Sodium 136 L (137-145) mmol/L Potassium 4.1 (3.5-5.1) mmol/L Chloride 102 (98-107) mmol/L Carbon Dioxide 25 (22-30) mmol/L BUN 15 (9-20) mg/dL Creatinine 0.97 (0.66-1.25) mg/dL Glucose 103 H (74-99) mg/dL Calcium 9.2 (8.4-10.2) mg/dL AST 45 (17-59) U/L ALT 60 H (4-49) U/L Alkaline Phosphatase 91 (38-126) U/L Total Protein 8.1 (6.3-8.2) g/dL Albumin 4.4 (3.5-5.0) g/dL Current Medications Generic Name Dose Route Start Last Admin Trade Name Freq PRN Reason Stop Dose Admin Aspirin 325 mg 09/02/21 09:00 09/02/21 07:53 Aspirin 325 Mg Tab PO 325 mg DAILY TAMICA Administration Atorvastatin Calcium 10 mg 09/02/21 09:00 09/02/21 07:53 Atorvastatin 10 Mg Tab PO 10 mg DAILY TAMICA Administration Nitroglycerin 0.4 mg 09/01/21 23:13 Nitroglycerin Sl Tabs 0.4 Mg Tab SUBLINGUAL Q5M PRN Chest Pain Pantoprazole Sodium 40 mg 09/02/21 09:00 09/02/21 07:53 Pantoprazole 40 Mg Tablet PO 40 mg DAILY TAMICA Administration Intake and Output 09/01/21 09/02/21 09/02/21 22:59 06:59 14:59 Other: # Voids 1 Weight 113.398 kg 113.398 kg 09/01/21 19:22 09/01/21 19:23
--- NOTE | 2021-09-02 10:48 | P.HPIM ---
History of Present Illness H&P Date: 09/02/21 This is a 51 year old male who presents to the with complaints of progressive midsternal chest pain, and associated diaphoresis, nausea. Started yesterday around noon, and was described as a "knot" midsternal. He denies radiation, denies jaw pain, arm pain. Currently pain free. He does have a past medical history significant for GERD, orthopedic surgery multiple, including cervical fusions, former smoker. Reports he has some herniated discs that he needs to follow up with his surgeon about. Also, he reports some clicking and pain in his left scapula. Echocardiogram and stress testing in August of 2012 unremarkable. Home medications include vitamins, Lipitor, Nexium. Patient is afebrile, heart rate 80s normal sinus rhythm, blood pressure 103/69. Patient is admitted to the hospital with consult placed to cardiology. Unremarkable blood count, d-dimer elevated 0.83, AST 60, troponins negative 3 Cholesterol panel showing triglycerides 203, cholesterol 155, LDL 80.5, HDL 33.90 EKG showing sinus tachycardia with incomplete right bundle branch block, left axis deviation. Gallbladder ultrasound showing no gallstones and no biliary ductal dilation, kidney and pancreas within normal limits Chest x-ray showing no acute cardiopulmonary process Chest CTA showed no PE REVIEW OF SYSTEMS: CONSTITUTIONAL: No fever, no malaise, no fatigue. HEENT: No recent visual problems or hearing problems. Denied any sore throat. CARDIOVASCULAR: No chest pain, orthopnea, PND, no palpitations, no syncope. PULMONARY: No shortness of breath, no cough, no hemoptysis. GASTROINTESTINAL: No diarrhea, no nausea, no vomiting, no abdominal pain. NEUROLOGICAL: No headaches, no weakness, no numbness. HEMATOLOGICAL: Denies any bleeding or petechiae. GENITOURINARY: Denies any burning micturition, frequency, or urgency. MUSCULOSKELETAL/RHEUMATOLOGICAL: Denies any joint pain, swelling, or any muscle pain. ENDOCRINE: Denies any polyuria or polydipsia. The rest of the 14-point review of systems is negative. PHYSICAL EXAMINATION: GENERAL: The patient is alert and oriented x3, not in any acute distress. Well developed, well nourished. HEENT: Pupils are round and equally reacting to light. EOMI. No scleral icterus. No conjunctival pallor. Normocephalic, atraumatic. No pharyngeal erythema. No thyromegaly. CARDIOVASCULAR: S1 and S2 present. No murmurs, rubs, or gallops. PULMONARY: Chest is clear to auscultation, no wheezing or crackles. ABDOMEN: Soft, nontender, nondistended, normoactive bowel sounds. No palpable organomegaly. MUSCULOSKELETAL: No joint swelling or deformity. There is a clicking sensation felt and heard with range of motion to the left shoulder. EXTREMITIES: No cyanosis, clubbing, or pedal edema. NEUROLOGICAL: Gross neurological examination did not reveal any focal deficits. SKIN: No rashes. Assessment and Plan Assessment Chest pain, ACS ruled out, possible musculoskeletal as it is reproducible and relieves with stretching History gastroesophageal reflux disease, on nexium Hyperlipidemia, on lipitor Obesity Elevated ALT History of cervical fusion GI Prophylaxis Plan A1C pending Follow up with Dr Dunn outpatient Follow up with Surgeon regarding back pain Resume home medications Patient will be discharged home today The impression and plan of care has been dictated by Nurse Brandon Pra ctitioner as directed. Dr. Maribel MD I have performed a history and physical examination and medical decision making of this patient, discussed the same with the dictator, and agree with the dictat ors assessment and plan as written, documented as a scribe. Based on total visit time, I have performed more than 50% of this visit. Past Medical History Past Medical History: GERD/Reflux History of Any Multi-Drug Resistant Organisms: None Reported Additional Past Surgical History / Comment(s): L rotator cuff, B knee arthroplasty, B feet, cervical fusion, R wrist Past Psychological History: No Psychological Hx Reported Smoking Status: Former smoker Past Alcohol Use History: Occasional Past Drug Use History: None Reported Medications and Allergies Home Medications Medication Instructions Recorded Confirmed Type Atorvastatin Calcium [Lipitor] 10 mg PO DAILY 09/01/21 09/01/21 History Esomeprazole Magnesium [NexIUM 20 mg PO DAILY 09/01/21 09/01/21 History 24Hr] Glucosamine/Chondr Osuna A Sod [Osteo 2 tab PO DAILY 09/01/21 09/01/21 History Bi-Flex Caplet] Multivit-Min/FA/Lycopen/Lutein 1 tab PO DAILY 09/01/21 09/01/21 History [Centrum Silver Men Tablet] Allergies Allergy/AdvReac Type Severity Reaction Status Date / Time No Known Allergies Allergy Verified 09/01/21 20:51 Physical Exam Vitals: Vital Signs Temp Pulse Pulse Resp BP BP Pulse Ox 09/02/21 07:00 98.5 F 92 16 103/69 97 09/02/21 00:47 98.1 F 77 18 115/71 95 09/01/21 22:00 85 16 97/61 93 L 09/01/21 20:40 90 16 96/63 94 L 09/01/21 20:10 89 20 88/74 91 L 09/01/21 19:30 88 22 104/74 91 L 09/01/21 19:00 96 10 L 125/75 94 L 09/01/21 18:51 98.9 F 97 18 125/75 94 L 09/01/21 18:39 98.1 F 99 19 124/81 97 Intake and Output 09/01/21 09/02/21 09/02/21 22:59 06:59 14:59 Other: # Voids 1 Weight 113.398 kg 113.398 kg Results CBC & Chem 7: 09/01/21 19:22 09/01/21 19:23 Labs: Abnormal Lab Results - Last 24 Hours (Table) 09/01/21 09/01/21 Range/Units 19:23 19:23 D-Dimer 0.83 H (<0.60) mg/L FEU Sodium 136 L (137-145) mmol/L Glucose 103 H (74-99) mg/dL ALT 60 H (4-49) U/L Assessment and Plan Time with Patient: Greater than 30
--- NOTE | 2021-09-02 21:17 | P.DS ---
Providers Date of admission: 09/01/21 23:13 Attending physician: Paloma Bermudez Consults: 09/01/21 23:13 Consult Physician Routine Consulting Provider: Santos Allison Consult Reason/Comments: chest pain Do you want consulting provider notified?: Yes Primary care physician: Marzena Washington Hospital Course: Final Diagnosis Chest pain, ACS ruled out, possible musculoskeletal as it is reproducible and relieves with stretching History gastroesophageal reflux disease, on nexium Hyperlipidemia, on lipitor Obesity Elevated ALT History of cervical fusion Discharge Disposition Patient is stable for discharge today. Cleared by cardiology and will follow up with Dr. Dunn in the office. Hospital Course This is a pleasant 51 year old male who presents to the hospital with chest pain described as a midsternal knot which started at noon yesterday. It was progressive with associated nausea due to the severity of pain. Patient was admitted to the hospital with consult placed to sourcing associate. Patient has a past medical history significant for GERD, hyperlipidemia, history of cervical fusion. Home medications include lipitor and nexium. Work up included EKG, gall bladder ultrasound, chest xray which were all negative. D-Dimer was found to be positive at 0.83, chest CTA completed negative for pulmonary embolism. Troponin negative x 3. Cholesterol panel shows triglycerides of 203, total cholesterol 155, LDL 80.5, HDL 33.90. Patient follows with a spine surgeon and states he will be following up after discharge and also plans to modify diet and increase cardiac activity. Please see history and physical date 09/02/2021 for additional information. 09/02/2021 Patient today denying chest pain. States he feels pain may be more musculoskeletal and acute coronary syndrome has been ruled out by cardiology. He denies cough, shortness of breath. Nausea has resolved, no diarrhea, no vomiting. Denies dizziness and lightheadedness. Patients lungs are clear, S1 S2 auscultated. Focal neurological exam is negative. He does have some clicking with range of motion to left scapula. Patient will be discharged on current home medications to follow up with primary care and cardiology, spine surgeon. Vital signs are stable, afebrile, blood pressure 103/69, heart rate 92, 97% on room air. Please see medication reconciliation for a list of current medications. Thank you for allowing us to participate in the care of this patient. The impression and plan of care has been dictated by Rochelle Catherine Nurse Practitioner as directed. Dr. Maribel MD I have performed a history and physical examination and medical decision making of this patient, discussed the same with the dictator, and agree with the dictators assessment and plan as written, documented as a scribe. Based on total visit time, I have performed more than 50% of this visit. Patient Condition at Discharge: Good Plan - Discharge Summary New Discharge Prescriptions: New Nitroglycerin Sl Tabs [Nitrostat] 0.4 mg SUBLINGUAL Q5M PRN #20 tab PRN Reason: Chest Pain Continue Atorvastatin Calcium [Lipitor] 10 mg PO DAILY Glucosamine/Chondr Osuna A Sod [Osteo Bi-Flex Caplet] 2 tab PO DAILY Multivit-Min/FA/Lycopen/Lutein [Centrum Silver Men Tablet] 1 tab PO DAILY Esomeprazole Magnesium [NexIUM 24Hr] 20 mg PO DAILY Discharge Medication List Atorvastatin Calcium [Lipitor] 10 mg PO DAILY 09/01/21 [History] Esomeprazole Magnesium [NexIUM 24Hr] 20 mg PO DAILY 09/01/21 [History] Glucosamine/Chondr Osuna A Sod [Osteo Bi-Flex Caplet] 2 tab PO DAILY 09/01/21 [History] Multivit-Min/FA/Lycopen/Lutein [Centrum Silver Men Tablet] 1 tab PO DAILY 09/01/21 [History] Nitroglycerin Sl Tabs [Nitrostat] 0.4 mg SUBLINGUAL Q5M PRN #20 tab 09/02/21 [Rx] Follow up Appointment(s)/Referral(s): Bryant Dunn MD [STAFF PHYSICIAN] - 1 Week Marzena Washington MD [Primary Care Provider] - 1-2 days Patient Instructions/Handouts: Chest Pain (DC) Activity/Diet/Wound Care/Special Instructions: Follow up with surgeon Discharge Disposition: HOME SELF-CARE
== END 2021-09-02 11:34 | disposition home or self-care (01) ==
LOC: EC 18:37 → 6NMEDSUR 23:13
PROVIDERS: ADMIT Hospitalist; ATTEND Hospitalist
DX: R07.89 Other chest pain (principal); R79.89 Other specified abnormal findings of blood chemistry; I45.10 Unspecified right bundle-branch block; R11.0 Nausea; R61 Generalized hyperhidrosis; K21.9 Gastro-esophageal reflux disease without esophagitis; E78.5 Hyperlipidemia, unspecified; G89.29 Other chronic pain; M54.9 Dorsalgia, unspecified; M25.512 Pain in left shoulder; E66.9 Obesity, unspecified; Z68.33 Body mass index [BMI] 33.0-33.9, adult; R74.01 Elevation of levels of liver transaminase levels; I95.9 Hypotension, unspecified; E78.00 Pure hypercholesterolemia, unspecified; Z79.899 Other long term (current) drug therapy; Z98.1 Arthrodesis status; Z87.891 Personal history of nicotine dependence; Z96.653 Presence of artificial knee joint, bilateral; Z98.890 Other specified postprocedural states
CPT/HCPCS: 96374; 99285; 36415; 93005; 85379; 80061; 80053; 83735; 84484 ×2; 85025; 85610; 85730; 83036; 71046; 76705; 71275; G0378 ×2; J2060; Q9967